=== PATIENT | female | born 1990 | race Caucasian/White ===

== ENCOUNTER 2018-08-07 11:20 | Inpatient (IN) | payer OTHER, MEDICAID ==
[2018-08-07 12:26] LABS: ADD MAN DIFF? NO
[2018-08-07 12:28] LABS: BASOPHILS % 0.3 % (0.0-2.0); EOSINOPHILS # 0.1 10^3/ul (0.0-0.5); EOSINOPHILS % 1.3 % (0.0-7.0); HEMATOCRIT 35.2 % (37.0-47.0); HEMOGLOBIN 11.5 g/dl (12.0-16.0); LYMPHOCYTES # 1.6 10^3/ul (0.8-2.9); LYMPHOCYTES % 16.1 % (15.0-51.0); MEAN CORPUSCULAR HEMOGLOBIN 29.2 pg (29.0-33.0); MEAN CORPUSCULAR HGB CONC 32.7 g/dl (32.0-37.0); MEAN CORPUSCULAR VOLUME 89.3 fl (82.0-101.0); MONOCYTE # 1.1 10^3/ul (0.3-0.9); MONOCYTES % 11.7 % (0.0-11.0); NEUTROPHIL # 6.8 10^3/ul (1.6-7.5); PLATELET COUNT 271 10^3/UL (140-415); RED BLOOD COUNT 3.94 10^6/ul (4.20-5.40); RED CELL DISTRIBUTION WIDTH 12.7 % (11.5-14.5)
[2018-08-07 12:28] LABS: WHITE BLOOD COUNT 9.7 10^3/ul (4.8-10.8)
[2018-08-07 12:32] LABS: ADD UMIC YES; UR ASCORBIC ACID NEGATIVE (NEGATIVE); UR BACTERIA MODERATE /HPF (NONE SEEN); UR BILIRUBIN (Dip) NEGATIVE (NEGATIVE); UR BLOOD (Dip) NEGATIVE (NEGATIVE); UR CLARITY CLOUDY (CLEAR); UR COLOR YELLOW (YELLOW); UR GLUCOSE (Dip) NEGATIVE (NEGATIVE); UR KETONES (Dip) NEGATIVE (NEGATIVE); UR LEUKOCYTE ESTERASE (Dip) TRACE Leu/ul (NEGATIVE); UR NITRITE (Dip) NEGATIVE (NEGATIVE); UR RBC 4 /HPF (0-5); UR SPECIFIC GRAVITY (Dip) 1.006 (1.003-1.030); UR SQUAMOUS EPITHELIAL CELL MODERATE /HPF (FEW); UR TOTAL PROTEIN (Dip) NEGATIVE (NEGATIVE); UR UROBILINOGEN (Dip) NEGATIVE (NEGATIVE); UR WBC 9 /HPF (0-5)
[2018-08-07 12:45] LABS: ALANINE AMINOTRANSFERASE 84 IU/L (13-69); ALBUMIN 3.6 g/dl (3.3-4.9); ALBUMIN/GLOBULIN RATIO 0.92; ALKALINE PHOSPHATASE 193 IU/L (42-121); ANION GAP 7 (5-13); ASPARTATE AMINO TRANSFERASE 62 IU/L (15-46); BILIRUBIN,INDIRECT 0.3 mg/dl (0-1.1); BILIRUBIN,TOTAL 0.3 mg/dl (0.2-1.3); BLOOD UREA NITROGEN 6 mg/dl (7-20); CALCIUM 9.5 mg/dl (8.4-10.2); CARBON DIOXIDE 23 mmol/L (21-31); CHLORIDE 111 mmol/L (97-110); CREATININE 0.52 mg/dl (0.44-1.00); Estimated GFR > 60 mL/min (>60); GLUCOSE 101 mg/dl (70-220); POTASSIUM 4.1 mmol/L (3.5-5.1); SODIUM 141 mmol/L (135-144); TOTAL PROTEIN 7.5 g/dl (6.1-8.1)
[2018-08-07] MEDS: LACTATED RINGER'S 1,000 ML IV (15:21)
[2018-08-07] MEDS: MAGNESIUM SULFATE 4 GM/100 ML 100 ML IV (15:27)
[2018-08-07] MEDS: BETAMET NA PHOS/AC(6 MG/ML) 2 ML INJ SYG IM (15:29)
[2018-08-07] MEDS: MAGNESIUM SULFATE 20 GM/500 ML 500 ML IV (16:00)
[2018-08-07 16:12] LABS: LIPASE 44 U/L (23-300)
[2018-08-07 16:12] LABS: AMYLASE 48 U/L (11-123)
[2018-08-07 16:20] LABS: IMMUNOGLOBULIN G 1063 mg/dl (700-1600); IMMUNOGLOBULIN M 80 mg/dl (40-230)
[2018-08-07 16:44] LABS: HEPATITIS B SURFACE ANTIGEN NEGATIVE (NEGATIVE)
[2018-08-07 17:01] LABS: HEPATITIS C VIRAL ANTIBODY NEGATIVE (NEGATIVE)
[2018-08-07 19:08] LABS: MAGNESIUM 4.5 mg/dl (1.7-2.5)
[2018-08-08 01:03] LABS: MAGNESIUM 5.5 mg/dl (1.7-2.5)
[2018-08-08] MEDS: MAGNESIUM SULFATE 20 GM/500 ML 500 ML IV ×4 (01:28→22:30)
[2018-08-08] MEDS: LACTATED RINGER'S 1,000 ML IV ×2 (01:29→14:22)
[2018-08-08 06:41] LABS: MAGNESIUM 5.8 mg/dl (1.7-2.5)
[2018-08-08] MEDS: PRENATAL VITAMIN PO (09:09)
[2018-08-08 13:10] LABS: MAGNESIUM 6.2 mg/dl (1.7-2.5)
[2018-08-08 13:12] LABS: INR 0.91; PROTIME 12.4 Sec (11.9-14.9)
[2018-08-08 13:13] LABS: PARTIAL THROMBOPLASTIN TIME 26.4 Sec (23.0-35.0)
[2018-08-08] MEDS: BETAMET NA PHOS/AC(6 MG/ML) 2 ML INJ SYG IM (14:14)
[2018-08-08] MEDS ORDERED: CEFAZOLIN 2 GM/50 ML (PMX) 50 ML IVPB (15:00)
[2018-08-08] MEDS ORDERED: CARBOPROST 250 MCG INJ IM ×2 (15:00→19:30)
[2018-08-08] MEDS ORDERED: METHYLERGONOVINE 0.2 MG INJ IM ×2 (15:00→19:30)
[2018-08-08] MEDS ORDERED: MISOPROSTOL 200 MCG TAB PR ×2 (15:00→19:30)
[2018-08-08] MEDS ORDERED: OXYTOCIN 30 UNITS/LR 500 ML IV ×3 (15:00→19:30)
[2018-08-08 16:03] LABS: COLLECTION PERIOD 24 hrs; SCRET 0.52 mg/dl (0.44-1.00); VOLUME 5600 ml/24hrs
[2018-08-08 16:04] LABS: CREATININE CLEARANCE 148.1 mls/min (84.0-162.0)
[2018-08-08 16:09] LABS: 24HR URINE TOTAL PROTEIN > 600.0 mg/24hrs (42.0-225.0); COLLECTION PERIOD 24 hrs; VOLUME 5600 mls
[2018-08-08 16:34] LABS: CREATININE 0.53 mg/dl (0.44-1.00)
[2018-08-08 16:45] LABS: AMPHETAMINE/METHAMPHETAMINE Negative (NEGATIVE); BARBITURATES Negative (NEGATIVE); BENZODIAZEPINES Negative (NEGATIVE); CANNABINOIDS Negative (NEGATIVE); COCAINE Negative (NEGATIVE); OPIATES Negative (NEGATIVE)
[2018-08-08] MEDS: CITRIC ACID/NA CITRATE 30 ML CUP PO (18:08)
[2018-08-08] MEDS ORDERED: METOCLOPRAMIDE 10 MG INJ (18:24)
[2018-08-08] MEDS ORDERED: morphine SULFATE/PF (10 MG/10 ML) INJ (18:24)
[2018-08-08] MEDS ORDERED: ONDANSETRON 4 MG INJ (18:24)
[2018-08-08] MEDS ORDERED: KETOROLAC 30 MG INJ (18:24)
[2018-08-08] MEDS: CEFAZOLIN 2 GM/50 ML (PMX) 50 ML IVPB (18:47)
[2018-08-08] MEDS ORDERED: EPHEDrine 25 MG/5 ML SYG (18:56)
[2018-08-08] MEDS ORDERED: PHENYLephrine (100 MCG/ML) 10ML SYG (18:56)
[2018-08-08] MEDS ORDERED: MAGNESIUM SULFATE 20 GM/500 ML 500 ML IV (19:28)
[2018-08-08] MEDS ORDERED: KETOROLAC 30 MG INJ IV (19:30)
[2018-08-08] MEDS: MAGNESIUM SULFATE 4 GM/100 ML 100 ML IV (19:30)
[2018-08-08] MEDS ORDERED: NALOXONE (0.4 MG/ML) INJ IV (19:30)
[2018-08-08] MEDS ORDERED: MAGNESIUM SULFATE 4 GM/100 ML 100 ML IV (19:30)
[2018-08-08] MEDS ORDERED: DIPHENHYDRAMINE 50 MG INJ IV ×2 (19:30)
[2018-08-08] MEDS ORDERED: ONDANSETRON 4 MG INJ IV (19:30)
[2018-08-08] MEDS ORDERED: NACL 0.9% 3 ML SYG IV ×3 (19:30)
[2018-08-08] MEDS ORDERED: CA GLUCONATE (GM) 10% 10ML INJ IV ×2 (19:30)
[2018-08-08] MEDS ORDERED: OXYCODONE/ACETAMINOPHEN (5/325) TAB PO ×2 (19:30)
[2018-08-08] MEDS ORDERED: morphine 2 MG INJ IV ×6 (19:30)
[2018-08-08 19:38] LABS: MAGNESIUM 6.2 mg/dl (1.7-2.5)
[2018-08-08 19:50] LABS: ALANINE AMINOTRANSFERASE 172 IU/L (13-69); ALBUMIN 3.4 g/dl (3.3-4.9); ALKALINE PHOSPHATASE 220 IU/L (42-121); ANION GAP 10 (5-13); ASPARTATE AMINO TRANSFERASE 140 IU/L (15-46); BILIRUBIN,INDIRECT 0.4 mg/dl (0-1.1); BILIRUBIN,TOTAL 0.4 mg/dl (0.2-1.3); BLOOD UREA NITROGEN 5 mg/dl (7-20); CALCIUM 7.4 mg/dl (8.4-10.2); CARBON DIOXIDE 20 mmol/L (21-31); CHLORIDE 106 mmol/L (97-110); CREATININE 0.49 mg/dl (0.44-1.00); GLUCOSE 114 mg/dl (70-220); LACTATE DEHYDROGENASE 603 IU/L (313-618); PHOSPHORUS 3.9 mg/dl (2.5-4.9); POTASSIUM 4.6 mmol/L (3.5-5.1); SODIUM 136 mmol/L (135-144); TOTAL PROTEIN 6.8 g/dl (6.1-8.1)
[2018-08-08] MEDS: OXYTOCIN 30 UNITS/LR 500 ML IV (20:15)
[2018-08-09] MEDS: LACTATED RINGER'S 1,000 ML IV ×2 (00:52→14:32)
[2018-08-09 01:26] LABS: MAGNESIUM 6.4 mg/dl (1.7-2.5)
[2018-08-09] MEDS: CEFAZOLIN 2 GM/50 ML (PMX) 50 ML IVPB ×2 (04:53→13:19)
[2018-08-09] MEDS: ONDANSETRON 4 MG INJ IV (04:57)
[2018-08-09] MEDS: KETOROLAC 30 MG INJ IV ×3 (04:57→18:40)
[2018-08-09] MEDS: IBUPROFEN 600 MG TAB PO ×4 (06:00→18:00)
[2018-08-09] MEDS: MAGNESIUM SULFATE 20 GM/500 ML 500 ML IV ×3 (06:09→16:31)
[2018-08-09 07:32] LABS: ADD MAN DIFF? NO
[2018-08-09 07:35] LABS: BASOPHILS % 0.1 % (0.0-2.0); HEMATOCRIT 29.7 % (37.0-47.0); HEMOGLOBIN 9.6 g/dl (12.0-16.0); LYMPHOCYTES # 1.4 10^3/ul (0.8-2.9); MEAN CORPUSCULAR HEMOGLOBIN 29.3 pg (29.0-33.0); MEAN CORPUSCULAR HGB CONC 32.3 g/dl (32.0-37.0); MEAN CORPUSCULAR VOLUME 90.5 fl (82.0-101.0); MEAN PLATELET VOLUME 10.9 fl (7.4-10.4); MONOCYTE # 1.3 10^3/ul (0.3-0.9); MONOCYTES % 8.3 % (0.0-11.0); NEUTROPHIL # 12.7 10^3/ul (1.6-7.5); NEUTROPHILS % 81.9 % (39.0-77.0); PLATELET COUNT 301 10^3/UL (140-415); RED BLOOD COUNT 3.28 10^6/ul (4.20-5.40); RED CELL DISTRIBUTION WIDTH 13.2 % (11.5-14.5)
[2018-08-09 07:35] LABS: WHITE BLOOD COUNT 15.5 10^3/ul (4.8-10.8)
[2018-08-09 08:05] LABS: MAGNESIUM 6.8 mg/dl (1.7-2.5)
[2018-08-09] MEDS: PRENATAL VITAMIN PO (10:11)
[2018-08-09 12:56] LABS: MAGNESIUM 6.8 mg/dl (1.7-2.5)
[2018-08-09] MEDS: LANOLIN HPA 1 PKT TOP (13:20)
[2018-08-09 15:22] LABS: RAPID PLASMA REAGIN NONREACTIVE (NR)
[2018-08-09 18:02] LABS: RHOGAM PROFILE 1 1
[2018-08-10] MEDS: IBUPROFEN 600 MG TAB PO ×5 (06:00→23:30)
[2018-08-10] MEDS: PRENATAL VITAMIN PO (08:29)
[2018-08-11] MEDS: IBUPROFEN 600 MG TAB PO ×2 (05:44→12:15)
[2018-08-11 10:55] LABS: ADD MAN DIFF? NO
[2018-08-11 10:57] LABS: BASOPHILS % 0.4 % (0.0-2.0); EOSINOPHILS # 0.3 10^3/ul (0.0-0.5); EOSINOPHILS % 2.4 % (0.0-7.0); HEMATOCRIT 31.6 % (37.0-47.0); HEMOGLOBIN 10.1 g/dl (12.0-16.0); LYMPHOCYTES # 1.9 10^3/ul (0.8-2.9); LYMPHOCYTES % 17.4 % (15.0-51.0); MEAN CORPUSCULAR HEMOGLOBIN 29.5 pg (29.0-33.0); MEAN CORPUSCULAR VOLUME 92.4 fl (82.0-101.0); MEAN PLATELET VOLUME 10.6 fl (7.4-10.4); MONOCYTE # 1.3 10^3/ul (0.3-0.9); MONOCYTES % 12.2 % (0.0-11.0); NEUTROPHIL # 7.3 10^3/ul (1.6-7.5); PLATELET COUNT 331 10^3/UL (140-415); RED BLOOD COUNT 3.42 10^6/ul (4.20-5.40); RED CELL DISTRIBUTION WIDTH 12.9 % (11.5-14.5)
[2018-08-11 10:57] LABS: WHITE BLOOD COUNT 10.8 10^3/ul (4.8-10.8)
[2018-08-11] MEDS: PRENATAL VITAMIN PO (12:15)
== END 2018-08-11 17:20 | disposition home or self-care (01) | DRG 788 ==
LOC: OBT 11:20 → L-D 11:23 → OBT 13:10 → L-D 08-08 18:12 → PP1 08-08 22:22
PROC: 10D00Z1 Extraction of Products of Conception, Low, Open Approach (ICD-10-PCS; principal; 2018-08-08 18:30)
DX: O60.13X0 Preterm labor second trimester with preterm delivery third trimester, not applicable or unspecified (principal); O14.14 Severe pre-eclampsia complicating childbirth; O69.81X0 Labor and delivery complicated by cord around neck, without compression, not applicable or unspecified; Z3A.35 35 weeks gestation of pregnancy; Z37.0 Single live birth
CPT/HCPCS: 76705; 76815; 76818; 80053; 80069; 80076; 80307; 81001; 82150; 82565; 82575; 82784; 83615; 83690; 83735; 84156; 84560; 85025; 85384; 85610; 85730; 86592; 86803; 86850; 86870; 86885; 86900; 86901; 87340; 99464